=== PATIENT | female | born 1950 | race Caucasian/White ===

== ENCOUNTER 2017-06-26 09:51 | Emergency (ER) | payer MEDICARE, OTHER ==
[2017-06-26] MEDS ORDERED: Morphine INJ* 4 MG/ML 1 ML CARPUJECT ONE (10:06)
[2017-06-26] MEDS ORDERED: Ondansetron INJ* 2 MG/ML VIAL ONE (10:06)
[2017-06-26] MEDS ORDERED: Morphine INJ* 4 MG/ML 1 ML CARPUJECT IV ONE ×2 (10:16→11:20)
[2017-06-26] MEDS ORDERED: Ondansetron INJ* 2 MG/ML VIAL IV ONE (10:16)
[2017-06-26] MEDS ORDERED: NS 0.9% 1000 ML*IV.FLUID IV ONE (10:16)
[2017-06-26 10:33] LABS: Hematocrit 34 % (35-47); Hemoglobin 11.5 g/dl (12.0-16.0); Mean Corpuscular HGB Conc 34 g/dl (31-36); Mean Corpuscular Hemoglobin 31 pg (27-31); Mean Corpuscular Volume 89 fL (80-97); Mean Platelet Volume 9 um3 (7.4-10.4); Red Blood Count 3.76 10^6/ul (4.0-5.4); Red Cell Distribution Width 15 % (10.5-15); White Blood Count 14.5 10^3/ul (3.5-10.8)
[2017-06-26 10:51] LABS: Albumin 3.3 g/dL (3.2-5.2); BUN/Creatinine Ratio 16.7 (8-20); C Reactive Protein 17.03 mg/L (< 5.00); Calcium 8.7 mg/dL (8.6-10.3); EGFR African American 114.5 (>60); EGFR Non-African American 89.1 (>60); Globulin 2.9 g/dL (2-4); Magnesium 2.1 mg/dL (1.9-2.7); Potassium 3.3 mmol/L (3.5-5.0); Total Bilirubin 5.6 mg/dL (0.2-1.0); Total Protein 6.2 g/dL (6.4-8.9)
[2017-06-26 10:53] LABS: Troponin I 0.02 ng/mL (<0.04)
[2017-06-26] MEDS ORDERED: ceFAZolin 1 GM VIAL(*) 1 GM in NS 0.9% 50 ML* 50 ML IVPB ONE (11:28)
[2017-06-26] MEDS ORDERED: ceFAZolin 1 GM ADVAN(*) 1 GM ADDV.VIAL IVPB ONE (11:42)
[2017-06-26] MEDS ORDERED: ceFAZolin 1 GM* X ONE DOSE IVPB ×2 (11:45)
[2017-06-26] MEDS: NS 0.9% 1000 ML* 2,000 ML IV ONE (14:18)
--- NOTE | 2017-06-26 15:14 | ED ---
Woo Loya SooYoung, scribed for Kenny Croft MD on 06/26/17 at 1124 . Abdominal Pain/Female - HPI Summary HPI Summary: A 66 y/o F presents to ED with c/o worsening abd pain onset this AM. Associated sx: nausea. Denies vomiting, diarrhea. Pain rated as 5/10 at bedside, at worst rated as 9/10. Pert PMHx: Pt had an endoscopic U/S at [facility] yesterday, with Dr. Perez, who advised at dispo going to local ED if she experiences abd pain. She's been at for past days to investigate her jaundice. Pt has a mass in her pancreas, stents were placed. Recent dx: breast CA on 04/20/17, and she had a mastectomy on 05/28/17. PCP is Dr. Varma. - History of Current Complaint Chief Complaint: EDGeneral Stated Complaint: ABD PAIN Time Seen by Provider: 06/26/17 10:31 Hx Obtained From: Patient, Family/Container [employer] Machine Onset/Duration: Gradual Onset, Lasting Hours, Still Present Timing: Constant Severity Initially: Moderate Severity Currently: Severe Pain Intensity: 8 Pain Scale Used: 0-10 Numeric Associated Signs and Symptoms: Positive: Nausea. Negative: Vomiting, Diarrhea Allergies/Adverse Reactions: Allergies Allergy/AdvReac Type Severity Reaction Status Date / Time Nitrofurantoin Allergy Hives Verified 06/26/17 09:59 [From Macrodantin] PMH/Surg Hx/FS Hx/Imm Hx Previously Healthy: No Cardiovascular History: Reports: Hx Hypertension - ON DAILY MEDS Respiratory History: Reports: Hx Asthma - ON INHALERS, RARELY NEEDS THE RESCUE INHALER GI History: Reports: Hx Gastroesophageal Reflux Disease - ON DAILY MEDS Musculoskeletal History: Reports: Hx Bursitis - LEFT HIP Sensory History: Reports: Hx Cataracts - BILATERAL, Hx Contacts or Glasses - GLASSES Opthamlomology History: Reports: Hx Cataracts - BILATERAL, Hx Contacts or Glasses - GLASSES - Cancer History Hx Chemotherapy: Yes - Surgical History Surgery Procedure, Year, and Place: 1944 TONSILLECTOMY [place]. [place]ERY [place]. 1998 LEFT BREAST L[place]PECTOMY [facility] [place]. 2011 GALLBLADDER [facility] Hx Anesthesia Reactions: No Infectious Disease History: No Infectious Disease History: Denies: Traveled Outside the US in Last 30 Days - Family History Known Family History: Positive: Other - neg Anasthesia reaction - Social History Occupation: Retired Lives: With Family Alcohol Use: Weekly Alcohol Amount: 4 DRINKS/WEEK Hx Substance Use: No Substance Use Type: Reports: None Hx Tobacco Use: No Smoking Status (MU): Never Smoked Tobacco Have You Smoked in the Last Year: No Review of Systems Negative: Fever, Chills Negative: Erythema Negative: Sore Throat Negative: Chest Pain Negative: Shortness Of Breath, Cough Positive: Abdominal Pain, Nausea. Negative: Vomiting, Diarrhea Negative: dysuria, hematuria Negative: Myalgia, Edema Negative: Rash Neurological: Other - neg: dizziness All Other Systems Reviewed And Are Negative: Yes Physical Exam - Summary Physical Exam Summary: Constitutional: Well-developed, Well-nourished, Alert. (-) Distressed Skin: Warm, Dry, Jaundice HENT: Normocephalic; Atraumatic Eyes: Conjunctiva normal Neck: Musculoskeletal ROM normal neck. (-) JVD, (-) Stridor, (-) Tracheal deviation Cardio: Rhythm regular, rate normal, Heart sounds normal; Intact distal pulses; The pedal pulses are 2+ and symmetric. Radial pulses are 2+ and symmetric. (-) Murmur Pulmonary/Chest wall: Effort normal. (-) Respiratory distress, (-) Wheezes, (-) Rales Abd: Soft, RUQ and Epigastric Tenderness, (-) Distension, (-) Guarding, (-) Rebound Musculoskeletal: (-) Edema Lymph: (-) Cervical adenopathy Neuro: Alert, Oriented x3 Psych: Mood and affect Normal Triage Information Reviewed: Yes Vital Signs On Initial Exam: Initial Vitals Temp Pulse Resp BP Pulse Ox 98.6 F 68 20 137/73 97 06/26/17 09:53 06/26/17 09:53 06/26/17 09:53 06/26/17 09:53 06/26/17 09:53 Vital Signs Reviewed: Yes Diagnostics - Vital Signs Vital Signs Temp Pulse Resp BP Pulse Ox 06/26/17 11:04 71 95 06/26/17 10:30 132/62 06/26/17 10:16 14 06/26/17 10:12 66 127/71 96 06/26/17 10:11 67 96 06/26/17 10:09 134/67 06/26/17 09:53 98.6 F 68 20 137/73 97 - Laboratory Lab Results: Lab Results 06/26/17 06/26/17 06/26/17 Range/Units 10:18 10:18 10:18 WBC 14.5 H (3.5-10.8) 10^3/ul RBC 3.76 L (4.0-5.4) 10^6/ul Hgb 11.5 L (12.0-16.0) g/dl Hct 34 L (35-47) % MCV 89 (80-97) fL MCH 31 (27-31) pg MCHC 34 (31-36) g/dl RDW 15 (10.5-15) % Plt Count 330 (150-450) 10^3/ul MPV 9 (7.4-10.4) um3 Neut % (Auto) 76.8 (38-83) % Lymph % (Auto) 15.6 L (25-47) % King % (Auto) 6.2 (1-9) % Eos % (Auto) 0.3 (0-6) % Baso % (Auto) 1.1 (0-2) % Absolute Neuts (auto) 11.1 H (1.5-7.7) 10^3/ul Absolute Lymphs (auto) 2.3 (1.0-4.8) 10^3/ul Absolute Monos (auto) 0.9 H (0-0.8) 10^3/ul Absolute Eos (auto) 0 (0-0.6) 10^3/ul Absolute Basos (auto) 0.2 (0-0.2) 10^3/ul Absolute Nucleated RBC 0 10^3/ul Nucleated RBC % 0 INR (Anticoag Therapy) (0.89-1.11) Sodium 135 (133-145) mmol/L Potassium 3.3 L (3.5-5.0) mmol/L Chloride 98 L (101-111) mmol/L Carbon Dioxide 30 (22-32) mmol/L Anion Gap 7 (2-11) mmol/L BUN 11 (6-24) mg/dL Creatinine 0.66 (0.51-0.95) mg/dL Est GFR ( Amer) 114.5 (>60) Est GFR (Non-Af Amer) 89.1 (>60) BUN/Creatinine Ratio 16.7 (8-20) Glucose 95 (70-100) mg/dL Lactic Acid 1.1 (0.5-2.0) mmol/L Calcium 8.7 (8.6-10.3) mg/dL Magnesium 2.1 (1.9-2.7) mg/dL Total Bilirubin 5.60 H (0.2-1.0) mg/dL AST 83 H (13-39) U/L ALT 210 H (7-52) U/L Alkaline Phosphatase 465 H (34-104) U/L Total Creatine Kinase 89 (10-223) U/L Troponin I 0.02 (<0.04) ng/mL C-Reactive Protein 17.03 H (< 5.00) mg/L Total Protein 6.2 L (6.4-8.9) g/dL Albumin 3.3 (3.2-5.2) g/dL Globulin 2.9 (2-4) g/dL Albumin/Globulin Ratio 1.1 (1-3) Amylase 95 (29-103) U/L Lipase 87 H (11.0-82.0) U/L 06/26/17 Range/Units 10:18 WBC (3.5-10.8) 10^3/ul RBC (4.0-5.4) 10^6/ul Hgb (12.0-16.0) g/dl Hct (35-47) % MCV (80-97) fL MCH (27-31) pg MCHC (31-36) g/dl RDW (10.5-15) % Plt Count (150-450) 10^3/ul MPV (7.4-10.4) um3 Neut % (Auto) (38-83) % Lymph % (Auto) (25-47) % King % (Auto) (1-9) % Eos % (Auto) (0-6) % Baso % (Auto) (0-2) % Absolute Neuts (auto) (1.5-7.7) 10^3/ul Absolute Lymphs (auto) (1.0-4.8) 10^3/ul Absolute Monos (auto) (0-0.8) 10^3/ul Absolute Eos (auto) (0-0.6) 10^3/ul Absolute Basos (auto) (0-0.2) 10^3/ul Absolute Nucleated RBC 10^3/ul Nucleated RBC % INR (Anticoag Therapy) 0.98 (0.89-1.11) Sodium (133-145) mmol/L Potassium (3.5-5.0) mmol/L Chloride (101-111) mmol/L Carbon Dioxide (22-32) mmol/L Anion Gap (2-11) mmol/L BUN (6-24) mg/dL Creatinine (0.51-0.95) mg/dL Est GFR ( Amer) (>60) Est GFR (Non-Af Amer) (>60) BUN/Creatinine Ratio (8-20) Glucose (70-100) mg/dL Lactic Acid (0.5-2.0) mmol/L Calcium (8.6-10.3) mg/dL Magnesium (1.9-2.7) mg/dL Total Bilirubin (0.2-1.0) mg/dL AST (13-39) U/L ALT (7-52) U/L Alkaline Phosphatase (34-104) U/L Total Creatine Kinase (10-223) U/L Troponin I (<0.04) ng/mL C-Reactive Protein (< 5.00) mg/L Total Protein (6.4-8.9) g/dL Albumin (3.2-5.2) g/dL Globulin (2-4) g/dL Albumin/Globulin Ratio (1-3) Amylase (29-103) U/L Lipase (11.0-82.0) U/L Result Diagrams: 06/26/17 10:18 06/26/17 10:18 Lab Statement: Any lab studies that have been ordered have been reviewed, and results considered in the medical decision making process. Abdominal Pain Fem Course/Dx - Course Course Of Treatment: A 66 y/o F presents to ED with c/o worsening abd pain onset this AM. Associated sx: nausea. Denies vomiting, diarrhea. Pain rated as 5 /10 at bedside, at worst rated as 9/10. Pert PMHx: Pt had an endoscopic U/S at [facility] yesterday, with Dr. Perez, who advised at dispo going to local ED if she experiences abd pain. She's been at for past days to investigate her jaundice. Pt has a mass in her pancreas, stents were placed. Recent dx: breast CA on 04/20/17, and she had a mastectomy on 05/28/17. PCP is Dr. Varma. Bloodwork taken. Pt given Cefazolin, morphine, Zofran and fluids in ED. Pt will be transferred to [facility] for higher level of care. - Diagnoses Provider Diagnoses: Post-operative pain, Pancreatic mass, Obstructive jaundice - Provider Notifications Discussed Care Of Patient With: Dorothy Johnston - gastro Time Discussed With Above Provider: 11:27 Instructed by Provider To: Transfer - Agrees with plan to transfer Discharge - Discharge Plan Condition: Stable Disposition: TRANS HIGHER L OF CARE FAC Referrals: Darcie Varma MD [Primary Care Provider] - Consult Consult: 11:52: Consult with Dr. Solorzano GI at [facility] Agrees with plan to transfer, will accept pt. 12:00: Consult with Dr. Zavala, hospitalist at [facility] Will accept pt. 1411: Follow up with [facility] transfer center Discussing problem of not getting a bed assigned to pt. State bed will be available shortly. Updated them that pt became hypotensive, treating with IV fluids. The documentation as recorded by the Woo pham SooYoung accurately reflects the service I personally performed and the decisions made by me, Kenny Croft MD.
[2017-06-26] MEDS ORDERED: fentaNYL* 50 MCG/ML 2 ML VIAL (100 MCG VIAL) IV SLOW PU ONE ×2 (15:31→17:28)
[2017-06-26] MEDS ORDERED: fentaNYL* 50 MCG/ML 2 ML VIAL (100 MCG VIAL) ONE (17:30)
[2017-06-26 17:31] VITALS: BP 89/54
== END 2017-06-26 18:22 | disposition short-term general hospital (02) ==
LOC: ED 09:51
DX: G89.18 Other acute postprocedural pain (principal); K86.9 Disease of pancreas, unspecified; K83.1 Obstruction of bile duct; R11.0 Nausea; Z86.79 Personal history of other diseases of the circulatory system
CPT/HCPCS: 36415; 80053; 82150; 82550; 83605; 83690; 83735; 84484; 85025; 85610; 86140; 96374; 96375; 99285; J0690; J2270; J2405; J2543; J3010

== ENCOUNTER 2017-07-01 22:44 | Emergency (ER) | payer MEDICARE, OTHER ==
[2017-07-02 00:29] LABS: Urine Bilirubin Negative (Negative); Urine Glucose Negative (Negative); Urine Nitrite Negative (Negative)
[2017-07-02 00:53] LABS: Hematocrit 29 % (35-47); Mean Corpuscular HGB Conc 34 g/dl (31-36); Mean Corpuscular Hemoglobin 31 pg (27-31); Mean Corpuscular Volume 91 fL (80-97); Mean Platelet Volume 9 um3 (7.4-10.4); Red Blood Count 3.21 10^6/ul (4.0-5.4); Red Cell Distribution Width 14 % (10.5-15); White Blood Count 9.6 10^3/ul (3.5-10.8)
[2017-07-02 01:08] LABS: Albumin 2.9 g/dL (3.2-5.2); BUN/Creatinine Ratio 20.8 (8-20); Calcium 8.4 mg/dL (8.6-10.3); EGFR African American 165.4 (>60); EGFR Non-African American 128.6 (>60); Globulin 2.9 g/dL (2-4); Potassium 4.1 mmol/L (3.5-5.0); Total Bilirubin 2.3 mg/dL (0.2-1.0); Total Protein 5.8 g/dL (6.4-8.9)
[2017-07-02] MEDS ORDERED: Pantoprazole TAB (NF) 40 MG TAB PO ONE (01:08)
[2017-07-02 02:50] VITALS: BP 150/82
--- NOTE | 2017-07-02 08:02 | RAD ---
Indication: Chest pain. Single frontal view of the chest performed at 0034 hours was reviewed. Comparison is made with previous exam dated October 02, 2010. No mediastinal shift is noted. Heart is of normal size and configuration. Lung pisano appear clear. IMPRESSION: NO ACTIVE CARDIOPULMONARY DISEASE IS NOTED.
--- NOTE | 2017-07-03 00:39 | ED ---
Art Loya Angela, scribed for Francine Fowler MD on 07/02/17 at 0052 . Complex/Multi-Sys Presentation - HPI Summary HPI Summary: This pt is a 66 y/o female accompanied by her presenting [place] [facility] c/o increased weakness since earlier today. Pt reports she was hospitalized in [facility] for chronic pancreatitis for 6 days and was discharged today. Pt notes that as she was leaving [facility] she felt weak. She states that she was kept in the hospital for high WBC, and was given saline, potassium, and zosyn. She notes 6 days ago pt was in the ED for abd pain but was transferred to [facility]. She additionally c/o diarrhea and chills that began today. Pt also reports abdominal bloating that goes around and is difficult to take a deep breath in. While at the hospital she states she gained 20 lbs and her legs have become swollen. Pt denies blurry vision, ear ache, neck pain, chest pain, SOB, hematuria, bloody stools. She denies black tarry stools and notes she has been having pale looking stools. She denies alcohol or tobacco use. Pt reports that in March pt had elevated LFTs. In May pt had a mastectomy of the left breast. PSHx inclufes cholecystectomy. - History Of Current Complaint Chief Complaint: EDWeakness Hx Obtained From: Patient Onset/Duration: Lasting Hours Timing: Hours Associated Signs And Symptoms: Positive: Weakness, Diarrhea, Abdominal Pain - abdominal bloating. Negative: Dizziness, SOB, Chest Pain, Nausea, Vomiting, Back Pain, Hematemesis, Fever - Allergies/Home Medications Allergies/Adverse Reactions: Allergies Allergy/AdvReac Type Severity Reaction Status Date / Time Nitrofurantoin Allergy Hives Verified 07/01/17 22:50 [From Macrodantin] PMH/Surg Hx/FS Hx/Imm Hx Endocrine/Hematology History: Denies: Hx Diabetes Cardiovascular History: Reports: Hx Hypertension - ON DAILY MEDS Respiratory History: Reports: Hx Asthma - ON INHALERS, RARELY NEEDS THE RESCUE INHALER GI History: Reports: Hx Gastroesophageal Reflux Disease - ON DAILY MEDS Musculoskeletal History: Reports: Hx Bursitis - LEFT HIP Sensory History: Reports: Hx Cataracts - BILATERAL, Hx Contacts or Glasses - GLASSES Opthamlomology History: Reports: Hx Cataracts - BILATERAL, Hx Contacts or Glasses - GLASSES - Cancer History Cancer Type, Location and Year: Breast CA Hx Chemotherapy: Yes - Surgical History Surgery Procedure, Year, and Place: 1944 TONSILLECTOMY [place]. [place]. [place] [facility] [facility] [place]x Anesthesia Reactions: No Infectious Disease History: No Infectious Disease History: Denies: Traveled Outside the US in Last 30 Days - Family History Known Family History: Positive: Other - neg Anasthesia reaction - Social History Alcohol Use: Weekly Alcohol Amount: 4 DRINKS/WEEK Hx Substance Use: No Substance Use Type: Reports: None Hx Tobacco Use: No Smoking Status (MU): Never Smoked Tobacco Have You Smoked in the Last Year: No Review of Systems Positive: Chills. Negative: Fever Eyes: Negative Negative: Ear Ache Negative: Chest Pain Negative: Shortness Of Breath Positive: Diarrhea, Other - abdominal bloating. Negative: Vomiting, Nausea Negative: hematuria, other - bloody stools Positive: Edema - both legs Positive: Weakness - generalized All Other Systems Reviewed And Are Negative: Yes Physical Exam Triage Information Reviewed: Yes Vital Signs On Initial Exam: Initial Vitals Temp Pulse Resp BP Pulse Ox 98.1 F 87 16 133/96 100 07/01/17 22:47 07/01/17 22:47 07/01/17 22:47 07/01/17 22:47 07/01/17 22:47 Vital Signs Reviewed: Yes Appearance: Positive: Well-Nourished Skin: Positive: Warm, Skin Color Reflects Adequate Perfusion, Dry Head/Face: Positive: Normal Head/Face Inspection Eyes: Positive: Normal ENT: Positive: Normal ENT inspection Neck: Positive: Supple, Nontender Respiratory/Lung Sounds: Positive: Clear to Auscultation, Breath Sounds Present Cardiovascular: Positive: Normal, RRR Abdomen Description: Positive: Nontender Musculoskeletal: Positive: Normal, Edema Left, Edema Right Neurological: Positive: Normal, Sensory/Motor Intact, Alert, Oriented to Person Place, Time Psychiatric: Positive: Normal Diagnostics - Vital Signs Vital Signs Temp Pulse Resp BP Pulse Ox 07/01/17 22:47 98.1 F 87 16 133/96 100 - Laboratory Lab Results: Lab Results 07/02/17 Range/Units 00:15 Urine Color Yellow Urine Appearance Clear Urine pH 8.0 (5-9) Ur Specific Walsh 1.011 (1.010-1.030) Urine Protein Negative (Negative) Urine Ketones Negative (Negative) Urine Blood Negative (Negative) Urine Nitrate Negative (Negative) Urine Bilirubin Negative (Negative) Urine Urobilinogen Negative (Negative) Ur Leukocyte Esterase Negative (Negative) Urine Glucose Negative (Negative) Result Diagrams: 07/02/17 00:30 07/02/17 00:30 Lab Statement: Any lab studies that have been ordered have been reviewed, and results considered in the medical decision making process. - Radiology Chest XR Xray Interpretation: No Acute Changes - Nothing acute. Radiology Interpretation Completed By: ED Physician Re-Evaluation - Re-Evaluation First Eval Re-Evaluation Time: 01:35 Comment: I reviewed with the pt her low calcium and anemia. Complex Multi-Symp Course/Dx Assessment/Plan: This pt is a 66 y/o female presents with increased weakness since earlier today. Pt reports she was hospitalized in [facility] for chronic pancreatitis for 6 days and was discharged today. Pt's calcium is low, I discussed this with the pt. Her total bilirubin has significantly decreased since her last visit. Pt does have anemia. She had anemia noted previously, but today it is slightly more impressive. Pt is recommended to have repeat labs in 2 days and follow up with her PCP. - Diagnoses Provider Diagnoses: Hypokalemia, Anemia, Weakness Discharge - Discharge Plan Condition: Stable Disposition: HOME Patient Education Materials: Hypokalemia (ED), Weakness (ED), Anemia (ED) Referrals: Darcie Varma MD [Primary Care Provider] - Additional Instructions: Please follow up with your primary care physician and your GI doctor in 2-3 days. your anemia is slightly worse. you need repeat hemoglobin and hematocrit in 2-3 days. Take all medications as previously instructed. The documentation as recorded by the Art pham Angela accurately reflects the service I personally performed and the decisions made by , Francine Fowler MD.
== END 2017-07-02 02:52 | disposition home or self-care (01) ==
LOC: ED 22:44
DX: E87.6 Hypokalemia (principal); D64.9 Anemia, unspecified; R19.7 Diarrhea, unspecified; R53.1 Weakness; R10.9 Unspecified abdominal pain; Z86.79 Personal history of other diseases of the circulatory system
CPT/HCPCS: 36415; 71010; 80053; 81003; 83690; 84484; 85025; 99283; A9270-GY

== ENCOUNTER 2018-04-20 13:24 | Emergency (ER) | payer MEDICARE, OTHER ==
--- NOTE | 2018-04-20 14:05 | ED ---
Abdominal Pain/Female - HPI Summary HPI Summary: This is Emerson Arzate documenting for attending Harpal Kyle MD. Pt GAEL is a 67 y/o F c/o abd pain onset last night. Pain is located in epigastric region radiating to her back and rated a 10/10 at its worse when she is having upper abdominal spasms. Currently, spasms have subsided and pain is rated a 5/10. Assoc. Sx: chills, abd pain, gassy. Denies: fever, N/V/D, melena. PMHx: chronic pancreatitis, CAD, GERD, HTN, denies DM. Pt decided to take trip to ED with worsening Sx this AM. She took pleutonics, tums today in attempts to alleviate the pain. SHx: None, occasional EtOH use. - History of Current Complaint Chief Complaint: EDAbdPain Stated Complaint: ABD PAIN Time Seen by Provider: 04/20/18 13:41 Hx Obtained From: Patient Onset/Duration: Sudden Onset, Lasting Days - Last night, Still Present, Worse Since - this AM Timing: Constant Severity Initially: Severe Severity Currently: Moderate Pain Intensity: 8 Pain Scale Used: 0-10 Numeric Location: Epigastric Radiates to: Back Character: Cramping Allergies/Adverse Reactions: Allergies Allergy/AdvReac Type Severity Reaction Status Date / Time nitrofurantoin Allergy Hives Verified 04/20/18 13:39 [From Macrodantin] Home Medications: Home Medications Mometasone 110 MCG MDI * [Asmanex 110 MCG MDI *] 1 puff INH BEDTIME 04/20/18 [ History Confirmed 04/20/18] PMH/Surg Hx/FS Hx/Imm Hx Endocrine/Hematology History: Denies: Hx Diabetes Cardiovascular History: Reports: Hx Hypertension - ON DAILY MEDS Respiratory History: Reports: Hx Asthma - ON INHALERS, RARELY NEEDS THE RESCUE INHALER GI History: Reports: Hx Gastroesophageal Reflux Disease - ON DAILY MEDS Musculoskeletal History: Reports: Hx Bursitis - LEFT HIP Sensory History: Reports: Hx Cataracts - BILATERAL, Hx Contacts or Glasses - GLASSES Opthamlomology History: Reports: Hx Cataracts - BILATERAL, Hx Contacts or Glasses - GLASSES - Cancer History Cancer Type, Location and Year: Breast CA Hx Chemotherapy: Yes - Surgical History Surgery Procedure, Year, and Place: 1944 TONSILLECTOMY [place]. 1970s [place]US SUR[place]ERY [place]. 1998 LEFT BREAST L[place]PECTOMY [facility] [place]. 2012 GALLBLADDER [facility] [place] Hx Anesthesia Reactions: No Infectious Disease History: No Infectious Disease History: Denies: Traveled Outside the US in Last 30 Days - Family History Known Family History: Positive: Other - neg Anasthesia reaction - Social History Occupation: Retired Lives: With Family Alcohol Use: None Alcohol Amount: 4 DRINKS/WEEK Hx Substance Use: No Substance Use Type: Reports: None Hx Tobacco Use: No Smoking Status (MU): Never Smoked Tobacco Have You Smoked in the Last Year: No Review of Systems Positive: Chills. Negative: Fever Positive: Other - "gassy". Negative: Vomiting, Diarrhea, Nausea Positive: other - NEG: melena All Other Systems Reviewed And Are Negative: Yes Physical Exam - Summary Physical Exam Summary: GENERAL: Patient is a well developed and nourished __(M/F)__ who is lying comfortable in the stretcher. Patient is not in any acute respiratory distress. HEAD AND FACE: Normocephalic EYES: PERRLA, EOMI x 2. EARS: Hearing grossly intact. MOUTH: Oropharynx within normal limits. NECK: Supple, trachea is midline, no adenopathy, no JVD, no carotid bruit. CHEST: Symmetric, no tenderness at palpation LUNGS: Clear to auscultation bilaterally. No wheezing or crackles. CVS: Regular rate and rhythm, S1 and S2 present, no murmurs or gallops appreciated. ABDOMEN: Minimal TTP epigastric region. Bowel sounds are normal. No abdominal abnormal pulsations. EXTREMITIES: Full ROM in all major joints, no edema, no cyanosis or clubbing. NEURO: Alert and oriented x 3. No acute neurological deficits. Speech is normal and follows commands. SKIN: Dry and warm Triage Information Reviewed: Yes Vital Signs On Initial Exam: Initial Vitals Temp Pulse Resp BP Pulse Ox 98.4 F 71 16 155/99 95 04/20/18 13:35 04/20/18 13:35 04/20/18 13:35 04/20/18 13:35 04/20/18 13:35 Vital Signs Reviewed: Yes Diagnostics - Vital Signs Vital Signs Temp Pulse Resp BP Pulse Ox 04/20/18 13:44 73 162/91 95 04/20/18 13:38 78 96 04/20/18 13:36 73 155/99 94 04/20/18 13:35 98.4 F 71 16 155/99 95 - Laboratory Result Diagrams: 04/20/18 14:42 04/20/18 14:42 Lab Statement: Any lab studies that have been ordered have been reviewed, and results considered in the medical decision making process. - CT A/P CT Interpretation: Positive (See Comments) - IMPRESSION: THERE IS A BILIARY STENT IN PLACE. BILIARY AIR IS NOTED IN THE LEFT LOBE OF THE LIVER. HYPODENSITY IS NOTED SURROUNDING THE BILIARY STENT IN THE PANCREATIC HEAD WHICH LIKELY IS DUE TO PANCREATITIS ALTHOUGH UNDERLYING MASS IS CONSIDERED LESS LIKELY. NO OTHER MASSES OR FLUID COLLECTIONS ARE NOTED. PATIENT IS STATUS POST COLECTOMY. CT Interpretation Completed By: Radiologist - Provider has reviewed report. - EKG 1425 Cardiac Rate: NL - 66 bpm EKG Rhythm: Sinus Rhythm ST Segment: Normal Re-Evaluation - Re-Evaluation First Eval Re-Evaluation Time: 16:35 Change: Improved Comment: She is feeling much better. Pt was offered admission for pancreatitis but declined and would rather go home. She has GI appt scheduled for 05/06 to have stent remove. Abdominal Pain Fem Course/Dx - Course Course Of Treatment: Pt GAEL is a 67 y/o F c/o abd pain onset last night. Workup is remarkable for probably pancreatitis seen on CT scan. Patient does not have a white count and all her labs are reassuring. Patient was offered admission however, she refused and said that she preferred to go home and promises to return for worsening symptoms. Patient does report that she has an upcoming appointment with GI to have the stents removed. The patient will be discharged home per her request. She is hemodynamically stable upon discharge. Strict return precautions given and she will otherwise follow up as planned - Diagnoses Provider Diagnoses: Pancreatitis Discharge - Sign-Out/Discharge Documenting (check all that apply): Patient Departure - Discharge Plan Condition: Stable Disposition: HOME Prescriptions: traMADol TAB* [Ultram*] 50 mg PO Q8H PRN #15 tab MDD 3 PRN Reason: Pain Patient Education Materials: Pancreatitis (ED) Referrals: Darcie Varma MD [Primary Care Provider] - 3 Days Additional Instructions: Follow up with your GI doctor in 1-3 days. RETURN TO THE EMERGENCY DEPARTMENT FOR CHANGING OR WORSENING SYMPTOMS. - Billing Disposition and Condition Condition: STABLE Disposition: Home
[2018-04-20] MEDS ORDERED: NS 0.9% 1000 ML* 1,000 ML IV ONE (14:06)
[2018-04-20] MEDS ORDERED: Pantoprazole IV* 40 MG IV ONE (14:16)
[2018-04-20] MEDS ORDERED: Ondansetron INJ* 2 MG/ML VIAL IV ONE (14:16)
[2018-04-20] MEDS ORDERED: Morphine VIAL* 10 MG/ML 1 ML VIAL IV PRN (14:16)
[2018-04-20 14:53] LABS: ABS Basophils 0.1 10^3/ul (0-0.2); ABS Eosinophils 0.1 10^3/ul (0-0.6); ABS Lymphocytes 1.7 10^3/ul (1.0-4.8); ABS Monocytes 0.8 10^3/ul (0-0.8); ABS Neutrophils 6.5 10^3/ul (1.5-7.7); ABS Nucleated RBC 0 10^3/ul; Hematocrit 40 % (35-47); Hemoglobin 13.8 g/dl (12.0-16.0); Mean Corpuscular HGB Conc 34 g/dl (31-36); Mean Corpuscular Hemoglobin 30 pg (27-31); Mean Corpuscular Volume 87 fL (80-97); Mean Platelet Volume 8.2 um3 (7.4-10.4); Nucleated Red Blood Cells % 0; Platelet Count 305 10^3/ul (150-450); Red Blood Count 4.65 10^6/ul (4.00-5.40); Red Cell Distribution Width 14 % (10.5-15); White Blood Count 9.2 10^3/ul (3.5-10.8)
[2018-04-20 15:23] LABS: EGFR Non-African American 85.8 (>60)
[2018-04-20] MEDS: Iohexol 300* (CONTRAST) 10 ML SDV IV ONE ×2 (15:53→16:07)
--- NOTE | 2018-04-20 16:21 | RAD ---
Indication: Epigastric pain, history of pancreatitis. Contrast: Administered 97.3 ml of OMNIPAQUE 300 mg/ml The lung bases demonstrate no pleural fluid, nodules or masses. Heart is of normal size without pericardial effusion. Patient is status post left breast prosthesis. Liver is normal in size. No focal lesions or intrahepatic duct dilatation is noted. The patient is status post cholecystectomy. Air is noted in the left lobe of liver. There is a biliary stent in place. In the pancreatic head there is hypodense area surrounding the biliary stent. This may represent pancreatitis. Underlying mass is considered less likely as there is no atrophy or pancreatic ductal dilatation distal pancreas. The spleen is normal in size. No adrenal lesions are noted. The kidneys demonstrate symmetric nephrograms without focal lesions. No adrenal lesions are noted. The kidneys demonstrate no hydronephrosis. No renal masses are noted. Aorta and inferior vena cava are unremarkable CT of the pelvis demonstrates no retroperitoneal or pelvic lymphadenopathy. The urinary bladder is unremarkable. Uterus and ovaries are unremarkable. No dilated loops of bowel are noted. There are is stool throughout the colon. No hernias are identified. Visualized bony structures are grossly unremarkable. IMPRESSION: THERE IS A BILIARY STENT IN PLACE. BILIARY AIR IS NOTED IN THE LEFT LOBE OF THE LIVER. HYPODENSITY IS NOTED SURROUNDING THE BILIARY STENT IN THE PANCREATIC HEAD WHICH LIKELY IS DUE TO PANCREATITIS ALTHOUGH UNDERLYING MASS IS CONSIDERED LESS LIKELY. NO OTHER MASSES OR FLUID COLLECTIONS ARE NOTED. PATIENT IS STATUS POST COLECTOMY.
[2018-04-20 17:28] LABS: Urine Appearance Clear; Urine Blood Negative (Negative); Urine Color Straw; Urine Ketones Negative (Negative); Urine Protein Negative (Negative); Urine Specific Gravity 1.054 (1.010-1.030); Urine Urobilinogen Negative (Negative)
[2018-04-20 17:57] VITALS: BP 123/65
== END 2018-04-20 17:56 | disposition home or self-care (01) ==
LOC: ED 13:24
DX: K85.90 Acute pancreatitis without necrosis or infection, unspecified (principal); I10 Essential (primary) hypertension; K21.9 Gastro-esophageal reflux disease without esophagitis; I25.10 Atherosclerotic heart disease of native coronary artery without angina pectoris; Z96.89 Presence of other specified functional implants; Z90.49 Acquired absence of other specified parts of digestive tract; Z79.899 Other long term (current) drug therapy; Z85.3 Personal history of malignant neoplasm of breast; Z92.21 Personal history of antineoplastic chemotherapy; Z88.3 Allergy status to other anti-infective agents
CPT/HCPCS: 36415; 74177; 80053; 81003; 83605; 83690; 84484; 85025; 86140; 93005; 96374; 96375; 99283; J2270; J2405; Q9967